=== PATIENT | male | born 1990 | race Caucasian/White ===

== ENCOUNTER 2018-07-22 10:58 | Emergency (ER) | payer MEDICAID ==
[~2018-07-22] VITALS: Ht 172.7 cm; Wt 77.1 kg
[2018-07-22 11:01] VITALS: BP 144/98
--- NOTE | 2018-07-22 11:13 | NUR ---
PT BIB SELF C/O RASH. PT STATES RASH AROUND MOUNTH X3 DAYS. PT STATES 3/10 BURNING, PAIN AROUND MOUTH. MILD REDNESS, DRY, NO SWELLING OR DISCHARGE TO AREA AT THIS TIME. DENIES N/V/D, SOB, OR CP. AAOX4. SMOKES CIGARETTES DAILY. PMH: DENIES RX: DENIES
[2018-07-22 12:20] VITALS: BP 132/90
--- NOTE | 2018-07-22 12:33 | NUR ---
Patient discharged with v/s stable. Written and verbal after care instructions given and explained. Patient alert, oriented and verbalized understanding of instructions. Ambulatory with steady gait. All questions addressed prior to discharge. ID band removed. Patient advised to follow up with PMD. Rx of TRIAMCINOLONE given. Patient educated on indication of medication including possible reaction and side effects. Opportunity to ask questions provided and answered.
== END 2018-07-22 12:33 | disposition home or self-care (01) ==
LOC: MED 10:58
DX: L30.9 Dermatitis, unspecified (principal)
CPT/HCPCS: 99283